=== PATIENT | female | born 1960 | race Caucasian/White ===

== ENCOUNTER 2023-07-11 21:37 | Emergency (ER) | payer MEDICAID ==
[~2023-07-11] VITALS: Ht 167.6 cm; Wt 73.9 kg
[2023-07-11] MEDS ORDERED: ONDANSETRON 4 MG/2 ML VIAL ONE ×2 (22:22→22:39)
[2023-07-11] MEDS: ONDANSETRON 4 MG/2 ML VIAL IV ONE ×2 (22:23→22:43)
[2023-07-11] MEDS ORDERED: GLUCAGON,HUMAN RECOMBINANT 1 MG VIAL ONE (22:23)
[2023-07-11] MEDS: GLUCAGON,HUMAN RECOMBINANT 1 MG VIAL IVP ONE (22:24)
[2023-07-11] MEDS ORDERED: MORPHINE SULFATE 4 MG/1 ML DISP.SYRIN ONE (22:38)
[2023-07-11] MEDS: MORPHINE SULFATE 4 MG/1 ML DISP.SYRIN IV ONE (22:43)
[2023-07-11] MEDS ORDERED: IV NORMAL SALINE 250 ML IV ONE (23:33)
[2023-07-11] MEDS ORDERED: SWABABLE VALVE TRANSFER SET EA MC ONE (23:33)
[2023-07-11] MEDS ORDERED: IOHEXOL 300MG/ML 100 ML INFUS..BTL ONE (23:33)
[2023-07-12] MEDS: IV NORMAL SALINE 500 ML BAG IV ONE (00:06)
[2023-07-12 01:08] LABS: ALBUMIN 4.1 g/dL (3.4-5.0); BILIRUBIN,TOTAL 0.4 mg/dL (0.2-1.0); C-REACTIVE PROTEIN 0.23 mg/dL (0.00-0.30); CALCIUM 9.4 mg/dL (8.5-10.1); CREATININE 0.7 mg/dL (0.6-1.3); MAGNESIUM 2.2 mg/dL (1.8-2.4); POTASSIUM 4.2 mmol/L (3.5-5.1)
[2023-07-12 01:36] LABS: BASOPHILS # (AUTO) 0.1 K/UL (0.0-0.2); BASOPHILS % (AUTO) 0.4 % (0.0-2.0); EOSINOPHILS # (AUTO) 0.1 K/uL (0.0-0.7); EOSINOPHILS % (AUTO) 0.7 % (0.0-7.0); HEMATOCRIT 40.4 % (31.2-41.9); HEMOGLOBIN 13.7 g/dL (10.9-14.3); LYMPHOCYTES # (AUTO) 2.5 K/uL (0.8-4.8); LYMPHOCYTES % (AUTO) 17.2 % (20.5-51.5); MEAN CORPUSCULAR HEMOGLOBIN 29.6 uug (24.7-32.8); MEAN CORPUSCULAR HGB CONC 34 g/dL (32.3-35.6); MEAN CORPUSCULAR VOLUME 87.2 fL (75.5-95.3); MONOCYTES # (AUTO) 0.7 K/uL (0.1-1.30); MONOCYTES % (AUTO) 4.8 % (0.0-11.0); NEUTROPHILS # (AUTO) 11.1 K/uL (1.8-8.9); NEUTROPHILS % (AUTO) 76.9 % (38.5-71.5); PLATELET COUNT (AUTO) 181 K/uL (179-408); RED BLOOD CELL COUNT(AUTO) 4.64 MIL/uL (3.63-4.92); RED CELL DISTRIBUTION WIDTH 13.7 % (12.3-17.7); WHITE BLOOD COUNT (AUTO) 14.4 K/uL (3.8-11.8)
[2023-07-12 01:37] LABS: DIFFERENTIAL COMMENT 1
[2023-07-12] MEDS ORDERED: OXYC5CAP18 PO (01:38)
[2023-07-12] MEDS ORDERED: ONDA4TAB5 PO (01:38)
[2023-07-12 02:01] VITALS: BP 120/71; O2SAT 99
== END 2023-07-12 01:55 | disposition home or self-care (01) ==
LOC: ER 21:38
DX: T18.108A Unspecified foreign body in esophagus causing other injury, initial encounter (principal); M54.2 Cervicalgia; Z79.899 Other long term (current) drug therapy; Y92.89 Other specified places as the place of occurrence of the external cause
CPT/HCPCS: 99285; 96374; 70491; 96375; 36415; 96361; 80053; 83735; 85025; 86140; 83605; J1610; J2405 ×2; Q9967; J2270; J7040; A4606